=== PATIENT | female | born 1985 | race Caucasian/White ===

== ENCOUNTER 2016-11-08 17:23 | Emergency (ER) | payer MEDICAID ==
[~2016-11-08 17:23] MED LIST: ISOVUE-370 76%-LOCM 1 ML ONE
[2016-11-08 18:41] LABS: #Eosinphils 0.1 thou/uL (0.0-0.7); #Lymphocytes 1.9 thou/uL (1.20-3.40); #Monocytes 0.6 thou/uL (0.11-0.59); %Basophils 0.3 % (0.0-1.0); %Eosinophils 0.6 % (0.0-10.0); %Lymphocytes 22.4 % (21.0-51.0); %Monocytes 6.7 % (0.0-10.0); Hematocrit 36.3 % (36.0-47.0); Mean Platelet Volume 9.6 fL (7.4-10.4); White Blood Cell (WBC) Count 8.5 thou/uL (4.8-10.8)
[2016-11-08] MEDS ORDERED: Fentanyl 100 MCG/2 ML VIAL ONE (18:45)
[2016-11-08 18:47] LABS: PTT 27.8 SEC (22.9-36.1); Prothrombin Time 14.8 SEC (12.0-14.7)
[2016-11-08 19:00] LABS: Anion Gap 12 mmol/L (10-20); BUN (Urea Nitrogen) 13 mg/dL (7.0-18.7); Carbon Dioxide 24 mmol/L (22-29); Chloride 107 mmol/L (98-107)
[2016-11-08 19:01] LABS: ALT (SGPT) 7 U/L (8-55); AST (SGOT) 8 U/L (5-34); Alkaline Phosphatase 57 U/L (40-150); Bilirubin, Total 0.3 mg/dL (0.2-1.2); CK (CPK) 43 U/L (29-168); Calc. Creatinine Clearance 0 mL/min (70-130); Calcium 9.1 mg/dL (7.8-10.44); Estimated GFR-MDRD 81; Globulin 2.9 g/dL (2.4-3.5); Lipase 16 U/L (8-78); Protein, Total 6.9 g/dL (6.0-8.3)
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
[2016-11-08] MEDS ORDERED: Ketorolac Tromethamine 30 MG/ML VIAL ONE (21:43)
--- NOTE | 2016-11-08 22:24 | CT ---
LEFT KNEE CT SCAN WITHOUT IV CONTRAST: 11/08/16 HISTORY: Left knee pain. COMPARISON: Left knee plain film examination 11/08/16. FINDINGS: No fracture or dislocation, joint effusion or other significant acute process. IMPRESSION: Unremarkable left knee CT. POS: [facility]
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
== END 2016-11-08 21:57 | disposition home or self-care (01) ==
LOC: ERS 17:23
DX: S20.211A Contusion of right front wall of thorax, initial encounter (principal); S30.1XXA Contusion of abdominal wall, initial encounter; S80.02XA Contusion of left knee, initial encounter; F31.9 Bipolar disorder, unspecified; F41.9 Anxiety disorder, unspecified; F17.290 Nicotine dependence, other tobacco product, uncomplicated; V49.9XXA Car occupant (driver) (passenger) injured in unspecified traffic accident, initial encounter
CPT/HCPCS: 36415; 70450; 71260; 72125; 74177; 80053; 82550; 83690; 84703; 85025; 85610; 85730; 86850; 86900; 86901; 96374; 96375; J1885; J3010